=== PATIENT | female | born 1965 | race Caucasian/White ===

== ENCOUNTER → 2017-08-13 | Outpatient (CLI) | payer OTHER ==
[2017-08-13 10:17] LABS: *BILIRUBIN,URIN NEGATIVE (NEGATIVE); *BLOOD, URINE NEGATIVE (NEGATIVE); *CLARITY,URINE CLEAR (CLEAR); *COLOR,URINE YELLOW (YELLOW); *KETONES,URINE NEGATIVE (NEGATIVE); *PROTEIN,URINE NEGATIVE (NEGATIVE); *UROBILINOGEN,URINE 0.2 E.U./dl (NORMAL); LEUKOCYTE ESTERASE ,URINE NEGATIVE (NEGATIVE); NITRITE, URINE NEGATIVE (NEGATIVE); PH,URINE 6.5 (5.0-8.0); UGLUCOSE NEGATIVE (NEGATIVE)
[2017-08-13 10:22] LABS: BASOPHILS % (AUTO) 0.5 % (0.0-2.0); EOSINOPHILS # (AUTO) 0.1 K/uL (0.0-0.7); EOSINOPHILS % (AUTO) 2.5 % (0.0-7.0); HEMATOCRIT 42.4 % (31.2-41.9); HEMOGLOBIN 14.5 g/dL (10.9-14.3); LYMPHOCYTES # (AUTO) 1.2 K/uL (20.0-40.0); LYMPHOCYTES % (AUTO) 28.6 % (20.5-51.5); MEAN CORPUSCULAR HEMOGLOBIN 31.5 uug (24.7-32.8); MEAN CORPUSCULAR HGB CONC 34 g/dL (32.3-35.6); MEAN CORPUSCULAR VOLUME 92.1 fL (75.5-95.3); MONOCYTES # (AUTO) 0.5 K/uL (2.0-10.0); MONOCYTES % (AUTO) 10.9 % (0.0-11.0); NEUTROPHILS # (AUTO) 2.5 K/uL (1.8-8.9); NEUTROPHILS % (AUTO) 57.5 % (38.5-71.5); PLATELET COUNT (AUTO) 175 K/uL (179-408); RED BLOOD CELL COUNT(AUTO) 4.61 MIL/uL (3.63-4.92); WHITE BLOOD COUNT (AUTO) 4.3 K/uL (3.8-11.8)
[2017-08-13 10:27] LABS: BACTERIA,URINE NONE SEEN /HPF (NONE SEEN); POTASSIUM 3.9 mmol/L (3.5-5.1); RBC,URINE 0-3 /HPF (0-3); SQUAMOUS EPITHELIAL CELL,UR MANY /HPF (NONE SEEN); WBC,URINE 0-3 /HPF (0-3)
[2017-08-13 10:34] LABS: BILIRUBIN,TOTAL 0.5 mg/dL (0.2-1.0)
== END | disposition home or self-care (01) ==
LOC: LAB 09:31
PROVIDERS: ATTEND Internal Medicine
DX: Z01.818 Encounter for other preprocedural examination (principal); G89.29 Other chronic pain; E66.9 Obesity, unspecified; F41.9 Anxiety disorder, unspecified; M47.892 Other spondylosis, cervical region; S83.206A Unspecified tear of unspecified meniscus, current injury, right knee, initial encounter; X58.XXXA Exposure to other specified factors, initial encounter; Y93.89 Activity, other specified; Y92.89 Other specified places as the place of occurrence of the external cause; Y99.8 Other external cause status
CPT/HCPCS: 36415; 71045; 80053; 81001; 83036; 85025; 85730; 93005; A4663

== ENCOUNTER 2017-08-16 06:22 | Day surgery (SDC) | payer OTHER ==
[2017-08-16] MEDS ORDERED: DEXAMETHASONE SOD PHOSPHATE 4 MG INJ IV ONE (06:23)
[2017-08-16] MEDS ORDERED: PROPOFOL 200 MG/20 ML BOTTLE IV ONE (06:23)
[2017-08-16] MEDS ORDERED: ONDANSETRON 4 MG/2 ML VIAL IV ONE (06:23)
[2017-08-16] MEDS ORDERED: LIDOCAINE HCL 2% 20 ML VIAL MC ONE (06:23)
[2017-08-16] MEDS ORDERED: CEFAZOLIN 1 G VIAL MC ONE (06:23)
[2017-08-16] MEDS ORDERED: SEVOFLURANE 250 ML BOTTLE IH ONE (06:23)
[2017-08-16] MEDS ORDERED: IV LACTATED RINGERS SOLUTION 1,000 ML BAG IV ONE (06:23)
[2017-08-16] MEDS ORDERED: KETOROLAC TROMETHAMINE 30 MG INJ IM ONE (06:23)
[2017-08-16] MEDS ORDERED: MORPHINE SULFATE PF 10 MG/10 ML AMPUL IV ONE (07:10)
[2017-08-16] MEDS ORDERED: BUPIVACAINE 0.25% 30 ML VIAL ONE (07:10)
[2017-08-16] MEDS ORDERED: FENTANYL CITRATE 100 MCG/2 ML AMPUL ONE (09:44)
[2017-08-16] MEDS ORDERED: HYDROCODONE/APAP 5-325MG TABLET ONE (10:36)
== END 2017-08-16 12:40 | disposition home or self-care (01) ==
LOC: DS 06:22
PROVIDERS: ATTEND Orthopaedic Surgery
DX: M23.241 Derangement of anterior horn of lateral meniscus due to old tear or injury, right knee (principal); M94.261 Chondromalacia, right knee; M23.8X1 Other internal derangements of right knee; Z88.8 Allergy status to other drugs, medicaments and biological substances; E66.01 Morbid (severe) obesity due to excess calories; Z87.891 Personal history of nicotine dependence; G89.29 Other chronic pain; F32.9 Major depressive disorder, single episode, unspecified; F41.9 Anxiety disorder, unspecified
CPT/HCPCS: J0690; J1100; J1885; J2274; J2405; J3010; J3490; J7120